=== PATIENT | male | born 1950 | race Caucasian/White ===

== ENCOUNTER → 2018-04-12 | Outpatient (CLI) | payer OTHER ==
[2018-04-12 12:08] LABS: HCT 49.4 % (39.0-53.0); HGB 16.1 gm/dL (13.0-17.5); MCH 30.2 pg (25.0-35.0); MCHC 32.6 g/dL (31.0-37.0); MCV 92.7 fL (80.0-100.0); Platelet Count 147 k/uL (150-450); RBC 5.33 m/uL (4.30-5.90); RDW 13.1 % (11.5-15.5); WBC 6.9 k/uL (3.8-10.6)
[2018-04-12 12:28] LABS: Potassium 4.7 mmol/L (3.5-5.1)
== END ==
LOC: LABPAT 10:51
PROVIDERS: ATTEND Internal Medicine Interventional Cardiology
DX: Z01.812 Encounter for preprocedural laboratory examination (principal); I25.810 Atherosclerosis of coronary artery bypass graft(s) without angina pectoris; I10 Essential (primary) hypertension; E11.9 Type 2 diabetes mellitus without complications
CPT/HCPCS: 36415; 80051; 82565; 83735; 84520; 85027

== ENCOUNTER → 2018-04-17 | Day surgery (SDC) | payer OTHER ==
[2018-04-12 13:29] VITALS: BMI 29.2
[~2018-04-17] MED LIST: ALPRAZolam 0.25 MG TAB PO PRN; ALPRAZolam 0.5 MG TAB PO PRN; ASPIRIN 325 MG TAB PO STA; ATORVASTATIN 80 MG TAB PO STA; NITROGLYCERIN SL TABS 0.4 MG TAB SUBLINGUAL PRN; SODIUM CHLORIDE 0.9% 1,000 ML in EMPTY BAG 1 BAG IV ONE
[2018-04-17 10:48] LABS: Glucose,Whole Blood 110 mg/dL (75-99)
[2018-04-17 10:49] VITALS: BP 138/98; PULSE 60; RESP 18; TEMP 97.9
[2018-04-17 13:01] LABS: Glucose,Whole Blood 109 mg/dL (75-99)
== END ==
LOC: CATHCVL 10:19
PROVIDERS: ATTEND Internal Medicine Interventional Cardiology
DX: I25.10 Atherosclerotic heart disease of native coronary artery without angina pectoris (principal); I10 Essential (primary) hypertension; E11.9 Type 2 diabetes mellitus without complications; Z53.9 Procedure and treatment not carried out, unspecified reason

== ENCOUNTER 2018-04-18 09:29 | Day surgery (SDC) | payer OTHER ==
[~2018-04-18 09:29] MED LIST changes: -ALPRAZolam 0.5 MG TAB PO PRN; +ASPIRIN 325 MG TAB PO ONE; -ASPIRIN 325 MG TAB PO STA; -ATORVASTATIN 80 MG TAB PO STA; -NITROGLYCERIN SL TABS 0.4 MG TAB SUBLINGUAL PRN
[2018-04-18 09:49] VITALS: TEMP 97.5
[2018-04-18 09:58] LABS: Glucose,Whole Blood 116 mg/dL (75-99)
[2018-04-18] MEDS ORDERED: MIDAZOLAM 2 MG/2 ML VIAL IVP ONE (11:09)
[2018-04-18] MEDS ORDERED: LIDOCAINE 1% INJ 10MG/ML (20 ML MDV) SQ ONE (11:16)
[2018-04-18] MEDS ORDERED: IOPAMIDOL-250 100ML BTL INTRAARTER ONE ×2 (11:30→11:47)
[2018-04-18] MEDS ORDERED: SODIUM CHLORIDE 0.9% 1,000 ML IV SCH (12:15)
[2018-04-18 12:56] LABS: Glucose,Whole Blood 102 mg/dL (75-99)
[2018-04-18 14:55] VITALS: BP 120/76; PULSE 68; RESP 16
--- NOTE | 2018-04-19 18:14 | CC ---
CARDIAC CATHETERIZATION REPORT DATE OF SERVICE: 04/18/2018 PROCEDURE PERFORMED: Left heart catheterization, coronary angiography and selective injection of bypass grafts. PERFORMED BY: Dr. Sarah Santacruz. SEDATION: Moderate conscious sedation time was 35 minutes. Patient was monitored closely for oxygen saturation, hemodynamics and EKG. CLINICAL INFORMATION: Mr. Jewel Glover is a 67-year-old gentleman with type 2 diabetes, hypertension, hyperlipidemia, CAD with aortocoronary bypass surgery performed sometime in March of 2014. At that time, he had a MAYO to LAD and 3 separate vein grafts, one was to the PDA branch of RCA and the other 2 were to the diagonal branch and circumflex marginal. Because of a significantly abnormal stress test in the circumflex distribution, he was advised coronary angiography after due discussion regarding risks, benefits, and options. PROCEDURE NOTE: Under local anesthesia and strict aseptic precautions, a 6-[place] introducer was placed in the right femoral artery. I used a standard left [place] catheter for selective coronary angiography of the left system. I used a Mercedes catheter for selective coronary angiography of the right coronary artery and the same catheter was used to perform selective angiography of the vein graft to the PDA branch of RCA. I then used a modified AR1 and then switched over to a left bypass diagnostic catheter. With this, I performed selective coronary angiography of the 2 vein grafts. One was the diagonal and the other was to the circumflex marginal, both of which were occluded. Using the Mercedes catheter, I performed selective coronary angiography of the MAYO which demonstrated that the MAYO to LAD was widely patent. I checked LV pressures but did not perform an LV gram. The sheath was then sutured and patient was sent to the room in a stable condition. CARDIAC CATHETERIZATION FINDINGS: The left ventricle end-diastolic pressure was about 12-14 mmHg without any gradient across aortic valve. CORONARY ANGIOGRAPHY FINDINGS: RIGHT CORONARY ARTERY: Technically this is a dominant vessel, has a diffuse disease in the midportion of about 70% or so with heavy calcification and distally bifurcates into PDA which is totally occluded and PLV which has competitive flow. There is some antegrade flow but the mid RCA is highly diseased. LEFT MAIN CORONARY ARTERY: This vessel at its ostium has a 70% to 80% stenosis. It is a long left main that then bifurcates into LAD and circumflex. The left main at its ostium has a 70% to 80% stenosis and distal left main immediately at the bifurcation has about 30-40 percent narrowing and then it bifurcates into LAD and circumflex. Ostial left main therefore has a 70% to 80% narrowing and left main is a long vessel. LEFT ANTERIOR DESCENDING CORONARY ARTERY: This vessel is totally occluded. Limited antegrade flow is noted. The diagonal branch and 2 small septals are opacified, but very limited antegrade flow is noted. LEFT POSTERIOR CIRCUMFLEX CORONARY ARTERY: This is a nondominant vessel. At the ostium of circumflex, there is a 70-80 percent calcified lesion and the circumflex is a good caliber and distribution, runs laterally, tortuous, has no significant disease other than the ostial disease of 70% to 80% with calcification. SAPHENOUS VEIN GRAFT TO THE PDA BRANCH OF RCA: This graft is widely patent at its origin, course and insertion site. Following insertion, there is no antegrade flow in the PDA branch. In fact it goes retrograde and fills the PLV completely. There is no significant disease in the graft itself and the PDA is totally occluded beyond insertion site, but it goes back and fills the PLV which has minor diffuse disease. SAPHENOUS VEIN GRAFT TO THE OBTUSE MARGINAL BRANCH OF CIRCUMFLEX: This graft is totally occluded, seen as a stump. SAPHENOUS VEIN GRAFT TO THE DIAGONAL BRANCH OF LAD: This graft is totally occluded, seen as a stump. LEFT INTERNAL MAMMARY ARTERY GRAFT TO LAD: This graft is widely patent in its origin, course and insertion site and opacified LAD has mild diffuse disease. No significant obstruction is noted and opacifies the entire length of LAD all the way to the apex. The MAYO graft is patent and LAD is also widely patent with minor diffuse disease. FINAL IMPRESSION: This patient has no significant gradient across aortic valve. Normal filling pressures. His right coronary artery is dominant, highly diseased in the midportion and distally there is competitive flow in the PLV. Left main has ostial disease of 70% to 80% and then bifurcates into LAD and circumflex. The circumflex at its ostium is highly calcified at 70% to 80% narrowing. The graft to the circumflex is occluded. Saphenous vein graft to the obtuse marginal branch and diagonal branch are totally occluded. The vein graft to the PDA is patent but opacifies the PLV and PDA antegrade, has not much flow, but it goes back and fills the PLV completely. RECOMMENDATIONS: Findings were discussed with the patient and family. I am recommending that we will pursue medical therapy and consider elective intervention of the ostium of the left main as well as the ostium of the circumflex which can be performed electively. Both of these are heavily calcified lesions and I will probably require an orbital atherectomy device as well. The patient will be brought in for this procedure electively in the next couple of weeks. Findings were discussed with the patient's family, same medical regimen and he will be discharged today and I will see him in about a week or so in the office. MMJOSEPHL / IJN: [id number] /
== END 2018-04-18 18:57 | disposition home or self-care (01) ==
LOC: CATHCVL 09:29
PROVIDERS: ATTEND Internal Medicine Interventional Cardiology
DX: I25.110 Atherosclerotic heart disease of native coronary artery with unstable angina pectoris (principal); I25.710 Atherosclerosis of autologous vein coronary artery bypass graft(s) with unstable angina pectoris; I25.82 Chronic total occlusion of coronary artery; I77.1 Stricture of artery; E78.00 Pure hypercholesterolemia, unspecified; R94.39 Abnormal result of other cardiovascular function study; I10 Essential (primary) hypertension; E11.9 Type 2 diabetes mellitus without complications; E78.5 Hyperlipidemia, unspecified; Z82.49 Family history of ischemic heart disease and other diseases of the circulatory system; Z95.1 Presence of aortocoronary bypass graft; Z79.4 Long term (current) use of insulin; Z79.899 Other long term (current) drug therapy; Z79.82 Long term (current) use of aspirin
CPT/HCPCS: 93459; C1894; C1769 ×2; J2250; J2001; Q9966

== ENCOUNTER → 2018-04-27 | Outpatient (CLI) | payer OTHER ==
[2018-04-27 10:18] LABS: HCT 48.4 % (39.0-53.0); HGB 16.1 gm/dL (13.0-17.5); MCH 30.2 pg (25.0-35.0); MCHC 33.2 g/dL (31.0-37.0); MCV 90.9 fL (80.0-100.0); Mean Platelet Volume 6.5; Platelet Count 212 k/uL (150-450); RBC 5.33 m/uL (4.30-5.90); RDW 13.2 % (11.5-15.5); WBC 7.8 k/uL (3.8-10.6)
[2018-04-27 10:47] LABS: Calcium 9.8 mg/dL (8.4-10.2); Magnesium 2.2 mg/dL (1.6-2.3); Potassium 4.7 mmol/L (3.5-5.1)
== END ==
LOC: LABPAT 09:11
PROVIDERS: ATTEND Internal Medicine Interventional Cardiology
DX: Z01.812 Encounter for preprocedural laboratory examination (principal); I25.810 Atherosclerosis of coronary artery bypass graft(s) without angina pectoris; I10 Essential (primary) hypertension; E78.2 Mixed hyperlipidemia
CPT/HCPCS: 80048; 83735; 85027

== ENCOUNTER 2018-05-03 09:22 | Day surgery (SDC) | payer OTHER ==
[2018-05-01 14:31] VITALS: BMI 29.2
[~2018-05-03 09:22] MED LIST changes: +ALPRAZolam 0.5 MG TAB PO PRN; -ASPIRIN 325 MG TAB PO ONE; +ASPIRIN 325 MG TAB PO STA; +ATORVASTATIN 80 MG TAB PO STA; +NITROGLYCERIN SL TABS 0.4 MG TAB SUBLINGUAL PRN
[2018-05-03 09:47] LABS: Glucose,Whole Blood 97 mg/dL (75-99)
[2018-05-03 09:54] LABS: Basophils # (A) 0.1 k/uL (0-0.2); Basophils % (A) 1 %; Eosinophils # (A) 0.3 k/uL (0-0.7); Eosinophils % (A) 4 %; HCT 48.7 % (39.0-53.0); HGB 16.4 gm/dL (13.0-17.5); Lymphocytes # (A) 1.6 k/uL (1.0-4.8); Lymphocytes % (A) 23 %; MCH 30.7 pg (25.0-35.0); MCHC 33.6 g/dL (31.0-37.0); MCV 91.4 fL (80.0-100.0); Mean Platelet Volume 6.8; Monocytes # (A) 0.4 k/uL (0-1.0); Monocytes % (A) 6 %; Neutrophils # (A) 4.7 k/uL (1.3-7.7); Neutrophils % (A) 65 %; Platelet Count 195 k/uL (150-450); RBC 5.33 m/uL (4.30-5.90); RDW 13.4 % (11.5-15.5); WBC 7.2 k/uL (3.8-10.6)
[2018-05-03] MEDS ORDERED: SODIUM CHLORIDE 0.9% 1,000 ML IV ONE (10:01)
[2018-05-03 10:05] LABS: Potassium 4.2 mmol/L (3.5-5.1)
[2018-05-03 10:06] LABS: Calcium 9.1 mg/dL (8.4-10.2)
[2018-05-03] MEDS ORDERED: LIDOCAINE 1% INJ 10MG/ML (20 ML MDV) SQ ONE (11:23)
[2018-05-03] MEDS ORDERED: MIDAZOLAM 2 MG/2 ML VIAL IVP ONE (11:23)
[2018-05-03] MEDS ORDERED: HEPARIN SODIUM 1,000 UN/ML (10ML VL) ONE (11:40)
[2018-05-03] MEDS ORDERED: NITROGLYCERIN SL TABS 0.4 MG TAB SUBLINGUAL ONE ×2 (12:03→12:04)
[2018-05-03] MEDS: NITROGLYCERIN 1000MCG/10ML SYRINGE INTRACORON ONE ×2 (12:07→12:24)
[2018-05-03] MEDS ORDERED: IOPAMIDOL-370 100ML BTL INJ ONE ×2 (12:15→12:35)
[2018-05-03] MEDS ORDERED: TICAGRELOR 90 MG TAB ONE (12:32)
[2018-05-03] MEDS ORDERED: TICAGRELOR 90 MG TAB PO ONE (12:34)
[2018-05-03] MEDS ORDERED: ATROPINE SULFATE 0.1 MG/ML 10ML SYRINGE IV PRN (12:47)
[2018-05-03] MEDS ORDERED: RX INFO: IV CONTRAST WAS GIVEN 1 EACH MISC MISCELLANE PRN (12:47)
[2018-05-03] MEDS ORDERED: MAG HYDROX/AL HYDROX/SIMETH 30 ML CUP PO PRN (12:47)
[2018-05-03 13:47] LABS: Glucose,Whole Blood 89 mg/dL (75-99)
[2018-05-03] MEDS: SODIUM CHLORIDE 0.9% 1,000 ML IV SCH (14:30)
[2018-05-03] MEDS: amLODIPine 5 MG TAB PO SCH (15:51)
[2018-05-03 16:43] LABS: Glucose,Whole Blood 150 mg/dL (75-99)
[2018-05-03] MEDS: INSULIN ASPART (NovoLOG) 100 UNIT/ML VIAL SQ SCH ×2 (17:31→21:40)
[2018-05-03 19:55] LABS: Glucose,Whole Blood 171 mg/dL (75-99)
[2018-05-03] MEDS ORDERED: LOSARTAN 50 MG TAB PO SCH (21:00)
[2018-05-03] MEDS: METOPROLOL SUCCINATE (ER) 25 MG TAB.ER.24H PO SCH (21:39)
[2018-05-03] MEDS: INSULIN DETEMIR (LEVEMIR) 100 UNIT/ML SYR SQ SCH (21:40)
[2018-05-03] MEDS: TICAGRELOR 90 MG TAB PO SCH (21:40)
--- NOTE | 2018-05-04 05:17 | PTCA ---
PERCUTANEOUSTRANS CORORONARY ANGIOGRAPHY DATE OF SERVICE: 05/03/2018. PROCEDURE: 1. Transvenous temporary pacemaker placement from right femoral venous approach. 2. Orbital atherectomy of ostial left main and ostial circumflex/ramus intermedius. 3. PTCA and stenting of ostial left main and ostial circumflex/ramus with drug-eluting stent. PERFORMED BY: Dr. Silvio Santacruz. Moderate conscious sedation time was 69 minutes. Patient was administered Versed and his oxygen saturation, hemodynamics and EKG were monitored closely. CLINICAL INFORMATION: Mr. Jewel Glover is a 67-year-old gentleman with a known history of CAD, hypertension, type 2 diabetes, hyperlipidemia. In March 2014, he underwent aortocoronary bypass surgery with a MAYO to LAD, vein graft to the diagonal, vein graft to the obtuse marginal and a vein graft to the PDA branch of RCA. Because of the abnormal stress test, I performed a cardiac cath on this patient and the study revealed significant lesions involving the ostium of the left main coronary artery, as well as the ostium of the ramus/circumflex coronary artery. This vessel was grafted before but the graft has since then been occluded. The 2 vein grafts were occluded and the MAYO to LAD was patent and vein graft to the PDA branch of RCA was patent. He was advised elective PCI with orbital atherectomy of ostium of the left main and ostium of the circumflex and was brought in for the procedure electively. Risks, benefits, options were explained to the patient and . They understood all details and wished to proceed. PROCEDURE NOTE: Under local anesthesia and strict aseptic precautions, a 6-[place] introducer was placed in the right femoral vein and a 6-[place] introducer was placed in the right femoral artery. Using a balloon tipped pacemaker, I advanced and positioned this in the right ventricular apex and good thresholds were obtained. The pacemaker was set at a backup rate of 40 with a mA of 5.0. The threshold was 0.4 mV. I then advanced under fluoroscopic guidance a Voda left 3.5 guide catheter of 6-[place] caliber and cannulated the left main coronary artery. A run-through wire of 300 cm length was advanced and the lesions were crossed and wire was kept in the distal aspect of the ramus intermedius. Using a SuperCross straight catheter, I exchanged this wire for an orbital atherectomy ViperWire. Under fluoroscopic guidance, I advanced the orbital atherectomy catheter into the ostium of the ramus and performed 3 passes at a low speed. Subsequently, the same catheter was withdrawn proximally and I performed 2 passes of the left main ostium. There was significant improvement in the angiographic appearance. Patient tolerated the procedure well so far. I then exchanged the ViperWire using a FineCross catheter and advanced a run-through wire that was kept distally. A 3.5 caliber 15 mm long Xience drug-eluting stent was deployed at the ostium of the ramus intermedius with the proximal end of the stent in the distal left main. Excellent angiographic result was achieved. I then advanced and positioned a 8 mm long 4.0 caliber Xience drug-eluting stent in the ostium of the left main. Excellent angiographic result was achieved. Both stents were deployed at 13 atmospheres. Patient had mild chest discomfort but no significant EKG changes. Excellent angiographic result without complication was achieved. The catheter and sheath was taken out and Angio-Seal device used to secure hemostasis. I then took out the transvenous pacemaker from the right ventricular apex under fluoroscopic guidance. The venous sheath was pulled, and hemostasis secured with manual pressure. The patient tolerated procedure well. Excellent angiographic result without complication was achieved. He was sent to the room in stable condition. I discussed the findings and results with the patient as well as his and his sister. I expect that he will be discharged tomorrow if he remains stable. JORDAN / ZAINAN: [id number] /
--- NOTE | 2018-05-04 05:20 | LTR ---
May 03, 2018 Re: Jweel Glover Dear Dr. Washington: Thank you for the opportunity to participate in the care of Mr. Jewel Glover. Please find enclosed my detailed PTCA report for your records. I performed an orbital atherectomy and deployed 2 drug-eluting stents in the ostium of the left main and ostium of the ramus intermedius. Excellent angiographic result without complication was achieved and I expect the patient to be discharged tomorrow. Thank you for your referral. Please call for questions. With kindest regards. Sincerely yours, Sarah Santacruz MD MMJOSEPHL / IJN: [id number] /
[2018-05-04] MEDS: SODIUM CHLORIDE 0.9% 1,000 ML IV SCH (05:25)
[2018-05-04 05:56] LABS: Glucose,Whole Blood 135 mg/dL (75-99)
[2018-05-04 06:33] LABS: Basophils % (A) 0 %; Eosinophils # (A) 0.1 k/uL (0-0.7); Eosinophils % (A) 2 %; HCT 45.4 % (39.0-53.0); HGB 15.2 gm/dL (13.0-17.5); Lymphocytes # (A) 0.4 k/uL (1.0-4.8); Lymphocytes % (A) 6 %; MCH 30.6 pg (25.0-35.0); MCHC 33.4 g/dL (31.0-37.0); MCV 91.5 fL (80.0-100.0); Monocytes # (A) 0.4 k/uL (0-1.0); Monocytes % (A) 6 %; Neutrophils # (A) 5.4 k/uL (1.3-7.7); Neutrophils % (A) 86 %; Platelet Count 126 k/uL (150-450); RBC 4.96 m/uL (4.30-5.90); RDW 13.4 % (11.5-15.5); WBC 6.3 k/uL (3.8-10.6)
[2018-05-04 06:41] LABS: Anion Gap 6 mmol/L; Blood Urea Nitrogen 13 mg/dL (9-20); Calcium 8.5 mg/dL (8.4-10.2); Carbon Dioxide 23 mmol/L (22-30); Chloride 110 mmol/L (98-107); Glucose 136 mg/dL (74-99); Potassium 3.7 mmol/L (3.5-5.1); Sodium 139 mmol/L (137-145)
[2018-05-04] MEDS: INSULIN ASPART (NovoLOG) 100 UNIT/ML VIAL SQ SCH (06:46)
[2018-05-04 08:19] VITALS: BP 131/78; PULSE 80; RESP 14; TEMP 98.6
[2018-05-04] MEDS: amLODIPine 5 MG TAB PO SCH (08:36)
[2018-05-04] MEDS: INSULIN DETEMIR (LEVEMIR) 100 UNIT/ML SYR SQ SCH (08:45)
[2018-05-04] MEDS: METOPROLOL SUCCINATE (ER) 25 MG TAB.ER.24H PO SCH (08:46)
[2018-05-04] MEDS: TICAGRELOR 90 MG TAB PO SCH (08:47)
[2018-05-04] MEDS ORDERED: ATORVASTATIN 80 MG TAB PO SCH (09:00)
[2018-05-04] MEDS ORDERED: LOSARTAN 50 MG TAB PO SCH (09:00)
[2018-05-04] MEDS ORDERED: CHOLECALCIFEROL 1,000 UNIT TAB PO SCH (09:00)
[2018-05-04] MEDS ORDERED: HYDROCHLOROTHIAZIDE 12.5 MG CAP PO SCH (09:00)
[2018-05-04] MEDS ORDERED: ASPIRIN 81 MG PO SCH (09:00)
--- NOTE | 2018-05-04 13:03 | DS ---
DISCHARGE SUMMARY DATE OF ADMISSION: 05/03/2018. DATE OF DISCHARGE: 05/04/2018. DIAGNOSES: 1. Unstable angina, status post prior aortocoronary bypass surgery. 2. Hypertension. 3. Hypercholesterolemia. 4. Type 2 diabetes mellitus. PROCEDURES PERFORMED: 1. Transvenous temporary pacemaker. 2. PTCA and stenting with orbital atherectomy of ostial left main and ostial circumflex/ramus intermedius with drug-eluting stents. Mr. Glover was brought in electively for a coronary intervention. Procedure was performed uneventfully. His postprocedure course was uneventful. He will be discharged today after he ambulates. His labs and EKG were unremarkable. Blood pressure is 130/70, pulse rate is 70 per minute. S1-S2 heard normally. Short systolic murmur noted. Lungs are clear. Abdomen and lower extremity examination is unchanged. Right groin is clean and dry with a good pulse. He will be discharged today and I will see him in the office on 05/08/2018 at 9:45 a.m. Discharge instructions regarding activity, diet and medications were given. He will also follow up with his PCP, Dr. Washington, in 2 weeks. He will be going home on aspirin, Brilinta, atorvastatin, lisinopril, metoprolol succinate, hydrochlorothiazide. MMODL / IJN: [id number] /
== END 2018-05-04 11:03 | disposition home or self-care (01) ==
LOC: CATHCVL 09:22 → 3SCARD 12:32 → CATHCVL 05-04 11:03
PROVIDERS: ATTEND Internal Medicine Interventional Cardiology
DX: I25.710 Atherosclerosis of autologous vein coronary artery bypass graft(s) with unstable angina pectoris (principal); I10 Essential (primary) hypertension; I42.2 Other hypertrophic cardiomyopathy; E11.9 Type 2 diabetes mellitus without complications; E78.5 Hyperlipidemia, unspecified; E78.00 Pure hypercholesterolemia, unspecified; Z82.49 Family history of ischemic heart disease and other diseases of the circulatory system; Z79.82 Long term (current) use of aspirin; Z79.4 Long term (current) use of insulin; Z79.899 Other long term (current) drug therapy
CPT/HCPCS: 80048 ×2; 85025 ×2; 83036; C9602 ×2; C1760; C1887 ×2; C1769 ×4; C1894; C1714; C1874; J2250; J2001; J1644; Q9967

== ENCOUNTER → 2020-08-21 | Outpatient (CLI) | payer BC ==
[2020-08-21 12:47] LABS: HCT 48.2 % (39.0-53.0); HGB 16.8 gm/dL (13.0-17.5); MCHC 34.7 g/dL (31.0-37.0); MCV 89.4 fL (80.0-100.0); Platelet Count 180 k/uL (150-450); RDW 12.7 % (11.5-15.5); WBC 6.4 k/uL (3.8-10.6)
[2020-08-21 12:56] LABS: Potassium 3.9 mmol/L (3.5-5.1)
== END | disposition home or self-care (01) ==
LOC: LABPAT 11:59
PROVIDERS: ATTEND Internal Medicine Interventional Cardiology
DX: Z01.812 Encounter for preprocedural laboratory examination (principal); R94.39 Abnormal result of other cardiovascular function study
CPT/HCPCS: 36415; 80051; 82565; 84520; 85027

== ENCOUNTER 2020-09-03 09:16 | Day surgery (SDC) | payer BC, OTHER ==
[2020-09-01 10:48] VITALS: BMI 27.2
[~2020-09-03 09:16] MED LIST changes: +ASPIRIN 325 MG TAB PO ONE; -ASPIRIN 325 MG TAB PO STA; +ATORVASTATIN 80 MG TAB PO ONE; -ATORVASTATIN 80 MG TAB PO STA; +HEPARIN SODIUM,PORCINE 10,000 UNIT in SODIUM CHLORIDE 0.9% 1,000 ML IRRIGATION PRN; +HEPARIN SODIUM,PORCINE 2,500 UNIT in SODIUM CHLORIDE 0.9% 250 ML IRRIGATION PRN
[2020-09-03 09:46] LABS: Glucose,Whole Blood 138 mg/dL (75-99)
[2020-09-03] MEDS ORDERED: SODIUM CHLORIDE 0.9% 1,000 ML IV ONE (10:04)
[2020-09-03 10:15] VITALS: RESP 16; TEMP 98
[2020-09-03] MEDS ORDERED: LIDOCAINE 1% INJ 10MG/ML (20 ML MDV) ONE (10:15)
[2020-09-03] MEDS ORDERED: HEPARIN SODIUM 1,000 UN/ML (10ML VL) ONE (10:15)
[2020-09-03] MEDS ORDERED: VERAPAMIL 2.5 MG/ML 2 ML AMP ONE (10:15)
[2020-09-03] MEDS ORDERED: MIDAZOLAM 2 MG/2 ML VIAL IV ONE (10:50)
[2020-09-03] MEDS ORDERED: LIDOCAINE 1% INJ 10MG/ML (20 ML MDV) SQ ONE (10:56)
[2020-09-03] MEDS ORDERED: IOPAMIDOL-370 100ML BTL INJ ONE ×2 (11:21→11:41)
[2020-09-03] MEDS: HEPARIN SODIUM 1,000 UN/ML (10ML VL) IV ONE ×3 (11:23→11:45)
[2020-09-03] MEDS ORDERED: SODIUM CHLORIDE 0.9% 1,000 ML IV SCH (11:32)
[2020-09-03] MEDS ORDERED: NITROGLYCERIN 1000MCG/10ML SYRINGE INTRACORON ONE (11:41)
[2020-09-03] MEDS ORDERED: CLOPIDOGREL 75 MG TAB ONE (11:43)
[2020-09-03] MEDS ORDERED: CLOPIDOGREL 75 MG TAB PO ONE (11:43)
[2020-09-03 12:45] LABS: Glucose,Whole Blood 152 mg/dL (75-99)
--- NOTE | 2020-09-03 13:50 | CC ---
CARDIAC CATHETERIZATION REPORT DATE OF SERVICE: 09/03/2020. PROCEDURE PERFORMED: 1. Coronary angiography and selective injection of bypass grafts. 2. PTCA and stenting of an in-stent restenotic lesion within the ramus intermedius with a drug-eluting stent. PERFORMED BY: Dr. Sarah Santacruz. SEDATION: Moderate conscious sedation time was 51 minutes. Patient was administered Versed, oxygen saturation, hemodynamics and EKG were monitored closely. CLINICAL INFORMATION: Mr. Jewel Glover is a 70-year-old gentleman with history of type 2 diabetes, hypertension and hypercholesterolemia. He also has history of significant CAD and underwent aortocoronary bypass surgery that was performed in March of 2014. He had a MAYO to LAD and 3 separate vein grafts to the PDA branch of RCA, diagonal branch of LAD and circumflex marginal. Because of significant abnormal stress test, he underwent cardiac catheterization on 04/18/2018, which revealed that the diagonal graft and circumflex marginal graft was occluded. The PDA/RCA graft was patent, but it was only filling the PLV branch and not the distal PDA. The MAYO to LAD was patent. [place] RCA had diffuse disease. There was significant disease within the left main in the ostium as well as in the midportion of the circumflex. He underwent stenting and orbital atherectomy of the left main and ramus intermedius and 2 drug-eluting stents were deployed. He had a 3.5 caliber stent in the ramus and a 4.0 caliber stent in the left main. Excellent angiographic result was achieved. He did well but because of symptoms of chest tightness, pressure, and significantly abnormal stress test, he was advised cardiac catheterization after due discussion regarding risks, benefits, and options. PROCEDURE NOTE: Under local anesthesia and strict aseptic precautions, a 6-Citizen [place] introducer was placed in the right femoral artery. I used a standard left [place] catheter to perform selective coronary angiography of the left system. Using a Mercedes catheter, I did selective coronary angiography of the [place] RCA as well as the MAYO graft and the RCA graft. The 2 other vein grafts were occluded. I did not do any LV gram or LV pressures. I noted that this patient had a significant restenotic lesion within the ramus in the midportion of about 90% and I proceeded to perform intervention in the same setting. CORONARY ANGIOGRAPHY FINDINGS: LEFT MAIN CORONARY ARTERY: This vessel is widely patent at the site of stenting and it continues as a ramus intermedius and the ramus intermedius is a 90% in-stent restenosis in the proximal portion of the ramus stent which was a 3.5 caliber Xience stent. This is a new lesion which is responsible for his abnormality on the stress test. 90% ramus in-stent restenosis was noted. RIGHT CORONARY ARTERY: Dominant vessel has diffuse disease and in the midportion distally bifurcates into PDA and PLV which are not well opacified. There is diffuse disease of anywhere from 50-70 percent in the entire RCA. These findings were very similar to the previous study from 2019. SAPHENOUS VEIN GRAFT TO THE PDA branch of RCA: This graft is widely patent at its origin, course and insertion site. The distal PDA is not opacified, but the proximal PDA and PLV branches opacified has mild diffuse disease. LEFT INTERNAL MAMMARY ARTERY GRAFT TO LAD: This graft is widely patent, has no significant disease and the insertion site is free of significant disease. Opacified LAD has mild diffuse disease but no critical stenosis. The 2 vein grafts to the diagonal and obtuse marginal were not injected and were found to be occluded during the last cardiac catheterization in April of 2018. FINAL IMPRESSION: This patient has diffuse disease in the dominant RCA and the vein graft to the PDA branch of RCA is patent and it opacifies the PLV but not the distal PDA. MAYO to LAD is patent with mild diffuse disease in the LAD. The ostium of the left main is widely patent, but the circumflex/ramus which was stented before now has a 90% in-stent restenosis. The 2 vein grafts were known to be occluded and these were to the diagonal and the circumflex marginal and were not injected. RECOMMENDATIONS: I recommended PCI of the ramus and proceeded to perform this in the same setting. PCI PROCEDURE DETAILS: The patient was administered a total of 7000 of heparin and his ACT was 248. Additional 1000 units of heparin was given. He was already on aspirin and Plavix. A 3.5 left Voda guide catheter was used to cannulate the left coronary artery and a run- through wire was used to cross the lesion. A 3.0 caliber 12 mm [place] Trek balloon was used to pre-dilate the lesion. A 4.0 caliber 15 mm Xience stent was deployed. The proximal portion of the stent still had some waste. I used a 4.5 caliber 8 mm long [place] Trek balloon. With this, I post dilated the proximal portion with excellent angiographic result. Patient did not have significant chest pain or EKG changes. Excellent angiographic result without complication was achieved. There was excellent NOEL-3 flow noted. The sheath was taken out and Angio-Seal device used to secure hemostasis and he was sent to the room in stable condition. SEDATION: The patient moderate conscious sedation time was 51 minutes. He was administered Versed. Oxygen saturation, hemodynamics and EKG were monitored closely. Results were discussed with the patient and family and I expect he will be discharged later today and I will see him in the office in the next 2 days. MMODL / IJN: [id number] /
[2020-09-03] MEDS ORDERED: INSULIN DETEMIR (LEVEMIR) 100 UNIT/ML SYR SQ SCH (14:00)
[2020-09-03 17:40] VITALS: BP 146/83; PULSE 59
== END 2020-09-03 18:18 | disposition home or self-care (01) ==
LOC: CATHCVL 09:16
PROVIDERS: ATTEND Internal Medicine Interventional Cardiology
DX: I25.110 Atherosclerotic heart disease of native coronary artery with unstable angina pectoris (principal); I25.810 Atherosclerosis of coronary artery bypass graft(s) without angina pectoris; T82.855A Stenosis of coronary artery stent, initial encounter; I10 Essential (primary) hypertension; E78.5 Hyperlipidemia, unspecified; E78.00 Pure hypercholesterolemia, unspecified; Z20.822 Contact with and (suspected) exposure to COVID-19; E11.9 Type 2 diabetes mellitus without complications; R94.39 Abnormal result of other cardiovascular function study; Z82.49 Family history of ischemic heart disease and other diseases of the circulatory system; Z79.02 Long term (current) use of antithrombotics/antiplatelets; Z79.82 Long term (current) use of aspirin; Z79.4 Long term (current) use of insulin; Z79.899 Other long term (current) drug therapy
CPT/HCPCS: 93455; 87635; C9600; C1769 ×4; C1760; C1887; C1894 ×2; C1725 ×2; C1874; J2250; J2001; J1644; Q9967